=== PATIENT | male | born 1965 | race Caucasian/White ===

== ENCOUNTER 2017-01-05 10:22 | Emergency (ER) | payer BC ==
[~2017-01-05] VITALS: Ht 172.7 cm; Wt 75.5 kg
[2017-01-05 10:29] VITALS: Ht 172.7 cm; Wt 75.5 kg
[2017-01-05] MEDS ORDERED: POLY10DR19 RIGHT EYE (12:00)
--- NOTE | 2017-01-05 12:09 | ERD ---
ER Documentation Chief Complaint Date/Time DATE: 01/05/17 TIME: 12:06 Chief Complaint RIGHT EYE PAIN/REDNESS STARTED THIS MORNING HPI 49-year-old male presents with some right eye redness starting today. Denies discharge, trauma, visual changes. He has history of cataracts in the right and has no visual field deficits or new complaints. Patient is concerned as he is on multiple medications and has history of kidney transplant. ROS All systems reviewed and are negative except as per history of present illness. Medications Home Meds Active Scripts Polymyxin B Sulfate-TMP* (Polymyxin B-TMP Eye Drops*) 10 Ml Drops, 1 DROP RIGHT EYE QID for 7 Days, EA Prov:HU KAPADIA MD 01/05/17 Allergies Allergies: Coded Allergies: No Known Allergy (Unverified , 01/05/17) PMhx/Soc Hx Alcohol Use: No Hx Substance Use: No Hx Tobacco Use: No Smoking Status: Unknown if ever smoked Physical Exam Vitals Vital Signs Date Time Temp Pulse Resp B/P Pulse Ox O2 Delivery O2 Flow Rate FiO2 01/05/17 10:29 98.5 81 19 143/81 99 Physical Exam Const: []Alert, [id number] Head: Atraumatic Eyes: Normal Conjunctiva. Slight redness from 3:00 to 6:00 in the right eye without involvement of the pupil or anterior chamber. Eyes are PERRLA and extraocular movements intact. No periorbital swelling or proptosis ENT: Normal External Ears, Nose and Mouth. Neck: Full range of motion..~ No meningismus. Resp: Clear to auscultation bilaterally Cardio: Regular rate and rhythm, no murmurs Abd: Soft, non tender, non distended. Normal bowel sounds Skin: No petechiae or rashes Back: No midline or flank tenderness Ext: No cyanosis, or edema Neur: Awake and alert Psych: Normal Mood and Affect Procedures/MDM Patient presents with conjunctivitis and possible mild subconjunctival hemorrhage. Signs or symptoms do not suggest threats to vision, orbital cellulitis, retinal artery occlusion, acute glaucoma. We discharged home with [place] and ophthalmology and primary care follow-up Departure Diagnosis: Primary Impression: Conjunctivitis Conjunctivitis type: unspecified Laterality: right Qualified Code: H10.9 - Conjunctivitis of right eye, unspecified conjunctivitis type Condition: Stable Patient Instructions: Conjunctivitis, Non-Specific, Subconjunctival Hemorrhage Referrals: [facility] Hours: Mon - Fri 9:00 AM - 5:00 PM Additional Instructions: Likely self-limited subconjunctival hemorrhage or conjunctivitis. 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 HU KAPADIA MD Jan 05, 2017 12:09
== END 2017-01-05 12:15 | disposition home or self-care (01) ==
LOC: FTE 10:22
DX: H10.9 Unspecified conjunctivitis (principal)
CPT/HCPCS: 99283

== ENCOUNTER 2017-05-28 13:05 | Emergency (ER) | END 2017-05-28 16:55 | disposition home or self-care (01) ==

== ENCOUNTER 2017-07-20 13:24 | Day surgery (SDC) | END 2017-07-20 19:02 | disposition home or self-care (01) ==

== ENCOUNTER 2017-09-17 11:24 | Emergency (ER) | END 2017-09-17 14:11 | disposition home or self-care (01) ==

== ENCOUNTER 2018-03-26 09:37 | Emergency (ER) | END 2018-03-26 13:18 | disposition home or self-care (01) ==

== ENCOUNTER 2018-12-07 22:09 | Emergency (ER) | payer OTHER, BC ==
[~2018-12-07] VITALS: Ht 172.7 cm; Wt 78.7 kg
[~2018-12-07 22:09] MED LIST: ALLO100T PO; AMLO-147 PO; ATOR10TA65 PO; ATOR40TA68 PO; ENTE1TAB PO; FEXO180T61 PO; HC30CR25 TOP; HYDR12.58 PO; LORA1TAB PO; LOSA25TA12 PO; MYCO160 PO; PANT20TA3 PO; PREDNISONE; SILD50TA PO; [UNRECOGNIZED DRUG - CODE] PO
[2018-12-07 22:34] VITALS: Ht 172.7 cm; Wt 78.7 kg
--- NOTE | 2018-12-07 23:21 | ERD ---
ER Documentation Chief Complaint Chief Complaint fatigue,dizzy HPI The patient is a 53-year-old male, presenting to the ER because of mitten dizziness and fatigue chronically, worse for the last week. He denies syncope, near syncope, seizure, neck pain, chest pain, dyspnea, abdominal pain, vomiting, dizzy, diarrhea. He is under a lot of stress Medical history: Hypertension, gout, dyslipidemia, hepatitis B Past surgical history: Kidney transplant in 2003, appendectomy ROS All systems reviewed and are negative except as per history of present illness. Medications Home Meds Reported Medications Sildenafil Citrate (Sildenafil Citrate) 50 Mg Tablet, 50 MG PO 12/08/18 Atorvastatin (Atorvastatin) 10 Mg Tablet, 10 MG PO QHS TAKE 1 TABLET BY MOUTH EVERYDAY AT BEDTIME 12/08/18 Losartan Potassium* (Losartan Potassium*) 25 Mg Tablet, 25 MG PO QHS for 30 Days, #30 12/08/18 Hydrochlorothiazide* (Hydrochlorothiazide*) 12.5 Mg Tablet, 12.5 MG PO QAM, #30 TAB 07/20/17 Allopurinol* (Allopurinol*) 100 Mg Tablet, 100 MG PO DAILY, TAB 07/20/17 Amlodipine Besylate* (Amlodipine Besylate*) 10 Mg Tablet, 10 MG PO DAILY, #30 TAB 07/20/17 Mycophenolate Sodium* (Myfortic*) 180 Mg Tab, 180 MG PO Q12, TAB 07/20/17 Entecavir (Baraclude) 1 Mg Tab, 1 MG PO QHS, TAB 07/20/17 Discontinued Reported Medications Entecavir (Entecavir) 1 Mg Tablet, 1 MG PO, TAB 07/20/17 Pantoprazole* (Pantoprazole*) 20 Mg Tablet.dr, 20 MG PO DAILY, TAB 07/20/17 Atorvastatin* (Atorvastatin*) 40 Mg Tablet, 10 MG PO QHS, #30 TAB 07/20/17 [Prednisone Daily] No Conflict Check 07/20/17 Discontinued Scripts Hydrocortisone* Topical (Hydrocortisone* Topical) 2.5%-28.3 Gm Cream..g., 1 APPLIC TOP BID for 7 Days, #1 TUB Prov:HU KAPADIA MD 03/26/18 Fexofenadine Hcl* (Shannan*) 180 Mg Tablet, 180 MG PO DAILY, #30 TAB Prov:HU KAPADIA MD 03/26/18 Lorazepam* (Lorazepam*) 1 Mg Tablet, 1 MG PO Q8, #10 TAB Prov:MARTA DEL RIO PA-C 09/17/17 Allergies Allergies: Coded Allergies: No Known Drug Allergies (Unverified Allergy, Unknown, 12/08/18) PMhx/Soc History of Surgery: Yes (APPENDECTOMY, KIDNEY TRANSPLANT, CATARACT SX.) Anesthesia Reaction: No Hx Neurological Disorder: No Hx Respiratory Disorders: No Hx Cardiac Disorders: No Hx Psychiatric Problems: No Hx Miscellaneous Medical Probl: Yes (KIDNEY PROBLEM, GOUT, CHOLESTEROL) Hx Alcohol Use: No Hx Substance Use: No Hx Tobacco Use: No Physical Exam Vitals Vital Signs Date Temp Pulse Resp B/P (MAP) Pulse Ox O2 O2 Flow FiO2 Time Delivery Rate 12/08/18 97.6 76 17 125/73 97 Room Air 02:19 (90) 12/08/18 124/83 02:13 (97) 12/07/18 98.4 62 17 136/92 98 Room Air 23:37 (107) 12/07/18 97.9 61 18 138/84 98 22:34 (102) Physical Exam Const: No acute distress. Head: Atraumatic. Eyes: Normal Conjunctiva. ENT: Normal External Ears, Nose and Mouth. Neck: Full range of motion. No meningismus. Resp: Clear to auscultation bilaterally. Cardio: Regular rate and rhythm. Abd: Soft, non distended, normal bowel sounds, non tender. Skin: No petechiae or rashes. Back: No midline or flank tenderness. Ext: No cyanosis, or edema. Neur: Awake and alert. No focal deficit Psych: Normal Mood and Affect. Result Diagram: 12/08/18 0005 12/08/18 0005 Results 24 hrs Laboratory Tests Test 12/07/18 23:56 12/08/18 00:05 Bedside Glucose 83 mg/dL White Blood Count 5.1 10^3/ul Red Blood Count 4.69 10^6/ul Hemoglobin 15.1 g/dl Hematocrit 46.4 % Mean Corpuscular Volume 98.9 fl Mean Corpuscular Hemoglobin 32.2 pg Mean Corpuscular Hemoglobin Concent 32.5 g/dl Red Cell Distribution Width 12.2 % Platelet Count 112 10^3/UL Mean Platelet Volume 11.8 fl Immature Granulocytes % 0.400 % Neutrophils % 69.6 % Lymphocytes % 19.7 % Monocytes % 9.3 % Eosinophils % 0.6 % Basophils % 0.4 % Nucleated Red Blood Cells % 0.0 /100WBC Immature Granulocytes # 0.020 10^3/ul Neutrophils # 3.5 10^3/ul Lymphocytes # 1.0 10^3/ul Monocytes # 0.5 10^3/ul Eosinophils # 0.0 10^3/ul Basophils # 0.0 10^3/ul Nucleated Red Blood Cells # 0.0 10^3/ul Sodium Level 139 mmol/L Potassium Level 3.7 mmol/L Chloride Level 103 mmol/L Carbon Dioxide Level 30 mmol/L Anion Gap 6 Blood Urea Nitrogen 23 mg/dl Creatinine 1.67 mg/dl Est Glomerular Filtrat Rate mL/min 43 mL/min Glucose Level 90 mg/dl Calcium Level 8.9 mg/dl Troponin I < 0.012 ng/ml Procedures/[place] [id number] Radiology Main Line: [phone] DIAGNOSTIC IMAGING REPORT Patient: LAINEY RAMSEY : 1965 Age: 53 Sex: M MR #: [id number] DOS: 12/07/18 2347 Ordering MD: MANJIT OCHOA MD Location: E/R Room/Bed: PROCEDURE: CT HEAD WITHOUT CONTRAST CLINICAL INDICATION: 53-year of age, male. Syncope TECHNIQUE: CT of the head was performed without IV contrast. Coronal and sagittal reformatted images were obtained from the axial source images. Images were reviewed on a high-resolution PACS workstation. DICOM images are available. Dose information: The estimated radiation dose (CTDIvol mGy) for each series in this exam is 40. The estimated cumulative dose (DLP mGy-cm) is a 634. One or more of the following dose reduction techniques were used: - Automated exposure control. - Adjustment of the mA and/or kV according to patient size. - Use of iterative reconstruction technique. COMPARISON: None available. FINDINGS: BRAIN PARENCHYMA: Negative for evidence of acute intraparenchymal hemorrhage, mass effect or large territory infarct. Keys-white matter differentiation is maintained. Mild diffuse cerebral tissue loss. VENTRICLES AND EXTRA-AXIAL SPACES: Prominence of the ventricles proportionate to the sulci in keeping with cerebral tissue loss. Midline is central. Basal cisterns are normal. 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 Negative for evidence of acute subarach noid or extra-axial hemorrhage. VASCULATURE: Mild intracranial atherosclerosis. VISUALIZED PARANASAL SINUSES AND MASTOID AIR CELLS: Visualized paranasal sinuses: Mild mucosal thickening ethmoid air cells. Otherwise clear where visualized. Mastoid air cells: Clear. BONES: No focal abnormality. SCALP: No significant abnormality. Additional comment: None. IMPRESSION: 1. Negative for evidence of acute intracranial hemorrhage or significant mass effect. Negative for CT evidence of acute large territory vascular infarct. If there is concern for recent ischemia, consider MRI brain for further evaluation. 2. Mild diffuse cerebral tissue loss. Mild intracranial atherosclerosis. RPTAT: HCTS Physician Elie Date Time Electronically viewed and signed by Physician Elie on 12/08/2018 01:10 CS/ CC: MANJIT OCHOA MD [phone] EKG: Read by emergency physician Rate/Rhythm: Sinus bradycardia 57 beats/min QRS, ST, T-waves: No ST elevation, no T inversion Impression: Abnormal EKG MEDICAL MAKING DECISION: The patient is a 53-year-old male, presenting with acute/chronic dizziness of unclear etiology, stable for outpatient follow-up The differential diagnoses considered include but are not limited to medications, central causes such as cerebellar infarct, cerebellar hemorrhage, cerebellar tumor, acoustic neuroma, peripheral causes such as benign positional vertigo, labyrinthitis, medication, Meniere's disease. Departure Diagnosis: Primary Impression: Dizziness Additional Impression: Thrombocytopenia Condition: Good Comments I discussed the findings with the patient. I advised the patient to follow-up with the primary physician in about 1-2 days, sooner if needed and return if any concern. Disclaimer: Inadvertent spelling and grammatical errors are likely due to EHR/dictation software use and do not reflect on the overall quality of patient care. Also, please note that the electronic time recorded on this note does not necessarily reflect the actual time of the patient encounter. MANJIT OCHOA MD Dec 07, 2018 23:21
[2018-12-08 02:19] VITALS: BP 125/73; PULSE 76; RESP 17
== END 2018-12-08 02:31 | disposition home or self-care (01) ==
LOC: E/R 22:09
DX: D69.6 Thrombocytopenia, unspecified (principal); I10 Essential (primary) hypertension; Z94.0 Kidney transplant status
CPT/HCPCS: 36415; 70450; 80048; 82962; 84484; 85025; 93005